=== PATIENT | male | born 1980 | race Caucasian/White ===

== ENCOUNTER 2018-05-03 18:21 | Emergency (ER) | payer SELFPAY ==
[2018-05-03] MEDS ORDERED: NACL 0.9% 1000 ML 1,000 ML IV ONE ×2 (18:26→18:57)
[2018-05-03 18:52] LABS: Basophils # (Auto) 0.1 K/mm3 (0.0-0.1); Basophils % (Auto) 0.5 % (0.0-1.8); Eosinophils % (Auto) 0.2 % (0.0-4.3); Hematocrit 43.1 % (35.5-45.6); Hemoglobin 14.8 gm/dl (11.8-15.2); Lymphocytes # (Auto) 1.7 K/mm3 (1.2-5.4); Lymphocytes % (Auto) 10.8 % (13.4-35.0); Mean Corpuscular HGB Conc 34 % (32-34); Mean Corpuscular Hemoglobin 30 pg (28-32); Mean Corpuscular Volume 86 fl (84-94); Monocytes % (Auto) 6.6 % (0.0-7.3); Platelet Count 371 K/mm3 (140-440); Red Cell Distribution Width 14.6 % (13.2-15.2)
[2018-05-03] MEDS ORDERED: MORPHINE IV ONE ×2 (18:57→20:03)
[2018-05-03] MEDS ORDERED: ZOFRAN IV ONE (18:57)
--- NOTE | 2018-05-03 19:02 | Emergency Department Report ---
HPI - General Chief Complaint: Abdominal Pain Time Seen by Provider: 05/03/18 18:51 - HPI HPI: Room 18 The patient is a 38-year-old male presenting with chief complaint of abdominal pain. The patient states today at approximately 14:00 he developed a constant right lower quadrant pain. Patient admits to nausea and vomiting but denies diarrhea or fever. Patient denies previous episodes of same. Patient admits to anorexia. The patient gives his pain a score of 8/10 Location: The right lower quadrant abdomen Duration: Constant since 14:00 Quality: Pain Severity: 8/10 Modifying factors: [see above] Context: [see above] Mode of transportation: [not driving] ED Past Medical Hx - Past Medical History Previous Medical History?: No Additional medical history: Psoriasis - Surgical History Past Surgical History?: No - Family History Family history: no significant - Social History Smoking Status: Never Smoker Substance Use Type: Alcohol (occasional) - Medications Home Medications: Home Medications Medication Instructions Recorded Confirmed Last Taken Type HYDROcodone/APAP 5-325 [[place] 1 - 2 each PO Q6HR PRN #20 tablet 05/03/18 Unknown Rx 5/325] Ketorolac [Toradol] 10 mg PO Q6H PRN #16 tablet 05/03/18 Unknown Rx Promethazine [Phenergan TAB] 25 mg PO Q6HR PRN #20 tab 05/03/18 Unknown Rx Promethazine [Phenergan] 25 mg OR Q6HR PRN #5 supp.rect 05/03/18 Unknown Rx ED Review of Systems ROS: Stated complaint: STOMACH PAIN Other details as noted in HPI Constitutional: denies: fever Eyes: denies: eye pain ENT: denies: throat pain Respiratory: no symptoms reported Cardiovascular: denies: chest pain Endocrine: no symptoms reported Gastrointestinal: abdominal pain, nausea, vomiting, other (anorexia). denies: diarrhea Genitourinary: denies: dysuria Musculoskeletal: denies: back pain Neurological: denies: headache Physical Exam - Physical Exam Vital Signs: Vital Signs 05/03/18 18:23 Temperature 99.2 F Pulse Rate 84 Respiratory 18 Rate Blood Pressure 151/100 O2 Sat by Pulse 100 Oximetry Physical Exam: GENERAL: The patient is well-developed well-nourished male lying on stretcher not appearing to be in acute distress. [] HEENT: Normocephalic. Atraumatic. Extraocular motions are intact. Patient has moist mucous membranes. NECK: Supple. Trachea midline CHEST/LUNGS: Clear to auscultation. There is no respiratory distress noted. HEART/CARDIOVASCULAR: Regular. There is no tachycardia. There is no gallop rub or murmur. ABDOMEN: Abdomen is soft, with tenderness to palpation only in the right lower quadrant. There is no obturator sign. Patient has normal bowel sounds. There is no abdominal distention. SKIN: There is no rash. There is no edema. There is no diaphoresis. NEURO: The patient is awake, alert, and oriented. The patient is cooperative. The patient has normal speech MUSCULOSKELETAL: There is no evidence of acute injury. ED Course Vital Signs 05/03/18 18:23 Temperature 99.2 F Pulse Rate 84 Respiratory 18 Rate Blood Pressure 151/100 O2 Sat by Pulse 100 Oximetry - Reevaluation(s) Reevaluation #1: 05/03/18 21:04 Patient states he feels improved - Consultations Consultation #1: 05/03/18 19:13 Surgery paged 05/03/18 19:19 Case briefly discussed with Dr. Welch. Made aware of potential appendicitis. ED Medical Decision Making - Lab Data Result diagrams: 05/03/18 18:33 05/03/18 18:33 Laboratory Tests 05/03/18 05/03/18 05/03/18 18:33 18:33 18:48 WBC 15.9 H RBC 5.00 Hgb 14.8 Hct 43.1 MCV 86 MCH 30 MCHC 34 RDW 14.6 Plt Count 371 Lymph % (Auto) 10.8 L [place] % (Auto) 6.6 Eos % (Auto) 0.2 Baso % (Auto) 0.5 Lymph # 1.7 [place] # 1.0 H Eos # 0.0 Baso # 0.1 Seg Neutrophils % 81.9 H Seg Neutrophils # 13.0 H Sodium 139 Potassium 3.7 Chloride 99.3 Carbon Dioxide 20 L Anion Gap 23 BUN 23 H Creatinine 1.1 Estimated GFR > 60 BUN/Creatinine Ratio 21 Glucose 136 H Calcium 9.9 Total Bilirubin 0.70 AST 36 ALT 60 H Alkaline Phosphatase 100 Total Protein 8.1 Albumin 5.0 Albumin/Globulin Ratio 1.6 Urine Color Yellow Urine Turbidity Slightly-cloudy Urine pH 5.0 Ur Specific [place] 1.035 H Urine Protein 100 mg/dl Urine Glucose (UA) Neg Urine Ketones 20 Urine Blood Neg Urine Nitrite Neg Urine Bilirubin Neg Urine Urobilinogen 2.0 Ur Leukocyte Esterase Neg Urine WBC (Auto) 2.0 Urine RBC (Auto) 50.0 U Epithel Cells (Auto) 1.0 Urine Mucus 1+ - Radiology Data Radiology results: report reviewed (CT abdomen and pelvis), image reviewed (CT abdomen and pelvis) [facility] [address] [place] [address] Cat Scan Report Signed Patient: MARNI GOODWIN MR#: [id number] : 1980 Acct:[id number] Age/Sex: 38 / M ADM Date: 05/03/18 Loc: ED Attending Dr: Ordering Physician: GREGORY ROMO MD Date of Service: 05/03/18 Procedure(s): CT abdomen pelvis w con Accession Number(s): [id number] cc: GREGORY ROMO MD FINAL REPORT EXAM: CT ABDOMEN PELVIS W CON HISTORY: RLQ pain TECHNIQUE: Following IV administration of 100 cc of Omnipaque 300 axial helical imaging was performed through the abdomen and pelvis with sagittal and coronal reformatted images obtained. Delayed axial helical imaging was also performed through the abdomen and pelvis. Comparison: None FINDINGS: Visualization detail in the lower abdomen and pelvis on the delayed images is limited by motion artifact. The study remains of diagnostic quality. The lung bases are without infiltrate, pneumothorax or pleural fluid collection. The liver, spleen, pancreas and adrenal glands are normal appearance. The gallbladder is moderately distended and unremarkable in appearance. There is mild to moderate right hydronephrosis with right hydroureter. There is an approximately 3 millimeter by 3 millimeter by 2.6 millimeter obstructing stone in the region the right ureterovesicular junction. There is an additional approximately 2.6 millimeter stone in the distal right ureter. There is mild stranding of the right perinephric fat. On the delayed images there is slight heterogeneous enhancement in portions of the right renal parenchyma. In the proper clinical setting this may represent changes of pyelonephritis. The left kidney is unremarkable in appearance. The bowel is normal caliber. The appendix is normal in appearance. There is no evidence of pneumoperitoneum or free fluid. The abdominal aorta is normal caliber. There is no evidence of pathologic intra-abdominal adenopathy by CT size criteria. The urinary bladder is mildly distended and contains an obstructing stone in the right ureteral vesicular junction. The prostate gland is normal size and contains calcifications. The bony structures are notable for bilateral L5 spondylolysis with grade 1 anterolisthesis L5 on S1. IMPRESSION: 1. Mild to moderate right hydronephrosis with approximately 3 millimeter obstructing stone right ureteral vesicular junction. 2. Additional approximately 2.6 millimeter stone distal right ureter. 3. No evidence of appendicitis. 4. Bilateral L5 spondylolysis with grade 1 anterolisthesis L5 on S1. Transcribed By: ED Dictated By: KATIE JOHNSON MD Electronically Authenticated By: KATIE JOHNSON MD Signed Date/Time: 05/03/181955 DD/ 55 TD/TT: 05/03/181955 - Differential Diagnosis appendicitis, renal colic,, UTI Critical care attestation.: If time is entered above; I have spent that time in minutes in the direct care of this critically ill patient, excluding procedure time. ED Disposition Clinical Impression: Acute abdominal pain, Renal colic on right side Disposition: DC- TO HOME OR SELFCARE Is pt being admited?: No Does the pt Need Aspirin: No Condition: Stable Instructions: Renal Colic (ED) Additional Instructions: Return to the emergency department immediately should you develop worsening symptoms, fever, inability to tolerate food or liquid or any other concerns. Prescriptions: HYDROcodone/APAP 5-325 [[place] 5/325] 1 - 2 each PO Q6HR PRN #20 tablet PRN Reason: Pain Ketorolac [Toradol] 10 mg PO Q6H PRN #16 tablet PRN Reason: Pain Promethazine [Phenergan TAB] 25 mg PO Q6HR PRN #20 tab PRN Reason: Nausea Promethazine [Phenergan] 25 mg OR Q6HR PRN #5 supp.rect PRN Reason: Vomiting Referrals: LUANA SIERRA MD [Staff Physician] - 3-5 Days (Dr. Sierra is a urologist. Please follow-up with him for further evaluation) Time of Disposition: 21:04
[2018-05-03 19:10] LABS: Alanine Aminotransferase 60 units/L (7-56); BUN/Creatinine Ratio 21; Blood Urea Nitrogen 23 mg/dL (9-20); Calcium 9.9 mg/dL (8.4-10.2); Hemolysis Index 4
[2018-05-03 19:25] LABS: Bilirubin,Urine NEG (Negative); Blood,Urine NEG (Negative); Color,Urine Yellow (Yellow); Mucus,Urine 1+ /HPF
--- NOTE | 2018-05-03 19:57 | Cat Scan Report ---
FINAL REPORT EXAM: CT ABDOMEN PELVIS W CON HISTORY: RLQ pain TECHNIQUE: Following IV administration of 100 cc of Omnipaque 300 axial helical imaging was performed through the abdomen and pelvis with sagittal and coronal reformatted images obtained. Delayed axial helical imaging was also performed through the abdomen and pelvis. Comparison: None FINDINGS: Visualization detail in the lower abdomen and pelvis on the delayed images is limited by motion artifact. The study remains of diagnostic quality. The lung bases are without infiltrate, pneumothorax or pleural fluid collection. The liver, spleen, pancreas and adrenal glands are normal appearance. The gallbladder is moderately distended and unremarkable in appearance. There is mild to moderate right hydronephrosis with right hydroureter. There is an approximately 3 millimeter by 3 millimeter by 2.6 millimeter obstructing stone in the region the right ureterovesicular junction. There is an additional approximately 2.6 millimeter stone in the distal right ureter. There is mild stranding of the right perinephric fat. On the delayed images there is slight heterogeneous enhancement in portions of the right renal parenchyma. In the proper clinical setting this may represent changes of pyelonephritis. The left kidney is unremarkable in appearance. The bowel is normal caliber. The appendix is normal in appearance. There is no evidence of pneumoperitoneum or free fluid. The abdominal aorta is normal caliber. There is no evidence of pathologic intra-abdominal adenopathy by CT size criteria. The urinary bladder is mildly distended and contains an obstructing stone in the right ureteral vesicular junction. The prostate gland is normal size and contains calcifications. The bony structures are notable for bilateral L5 spondylolysis with grade 1 anterolisthesis L5 on S1. IMPRESSION: 1. Mild to moderate right hydronephrosis with approximately 3 millimeter obstructing stone right ureteral vesicular junction. 2. Additional approximately 2.6 millimeter stone distal right ureter. 3. No evidence of appendicitis. 4. Bilateral L5 spondylolysis with grade 1 anterolisthesis L5 on S1.
[2018-05-03] MEDS ORDERED: TORADOL IV ONE (20:03)
[2018-05-03 22:27] VITALS: BP 165/96
== END 2018-05-03 22:31 | disposition home or self-care (01) ==
LOC: ED 18:21
DX: N23 Unspecified renal colic (principal); R10.31 Right lower quadrant pain
CPT/HCPCS: 36415; 74177; 80053; 81001; 85025; 96361; 96374; 96375; 96376; 99284; J1885; J2270; J2405; J7030; Q9967